=== PATIENT | female | born 1940 | race Caucasian/White ===

== ENCOUNTER 2017-11-12 09:50 | Inpatient (IN) ==
[2017-11-07 18:14] LABS: Blood Urea Nitrogen 12 mg/dl (8-23)
[2017-11-07 18:16] LABS: Basophils # (Auto) 0 K/mcL (0.0-0.3); Basophils % (Auto) 0.3 % (0.0-2.0); Eosinophils # (Auto) 0.1 K/mcL (0.0-0.7); Eosinophils % (Auto) 1.8 % (0.0-7.0); Granulocytes % (Auto) 43.2 % (38.0-78.0); Lymphocytes # (Auto) 3.6 K/mcL (1.5-4.8); Lymphocytes % (Auto) 49.6 % (15.5-49.0); Mean Cell Volume 121.9 fL (80.0-100.0); Mean Corpuscular HGB Conc 33.6 g/dL (31.0-36.0); Mean Corpuscular Hemoglobin 40.9 pg (26.0-34.0); Monocytes # (Auto) 0.4 K/mcL (0.1-0.9); Monocytes % (Auto) 5.1 % (1.0-12.0); Platelet Count 463 K/mcL (140-440); RBC 2.87 M/mcL (4.00-5.20); Red Cell Distribution Width 17.3 % (11.5-14.5)
[2017-11-11 12:06] LABS: Appearance,Urine CLOUDY; Bacteria,Urine 0 /hpf (0); Bilirubin,Urine NEG (NEG); Color,Urine YELLOW; Glucose,Urine (UA) NEGATIVE (NEG); Leukocyte Esterase,Urine 75 /uL (NEG); Mucus,Urine MOD /hpf (0); Protein,Urine NEG (NEG); Specific Gravity,Urine 1.011 (1.000-1.035); Urine Blood NEG mg/dL (<0.03); Urine RBC 1 /hpf (0-1); Urine Squamous Epithelial Cell 13 /hpf (0-4); Urine Transitional Epi Cells 1 /hpf (0-2); Urine WBC 5 /hpf (0-4); Urobilinogen,Urine NEG (NEG)
[~2017-11-12 09:50] MED LIST: CELECOXIB 200 MG CAPSULE PO SCH; PREGABALIN 75 MG CAPSULE PO SCH; ceFAZolin 1 GM VIAL IV SCH; oxyCODONE 10 MG TAB.ER.12H PO SCH
[2017-11-12] MEDS ORDERED: fentaNYL 250 MCG/5 ML VIAL IV ONE (13:05)
[2017-11-12] MEDS ORDERED: LIDOCAINE HCL/PF 100 MG/5 ML SYRINGE IV ONE (13:05)
[2017-11-12] MEDS ORDERED: ONDANSETRON 4 MG/2 ML VIAL IV ONE (13:05)
[2017-11-12] MEDS ORDERED: METOPROLOL TARTRATE 5 MG/5 ML VIAL IV ONE (13:05)
[2017-11-12] MEDS ORDERED: PROPOFOL 200 MG/20 ML VIAL IV ONE (13:05)
[2017-11-12] MEDS ORDERED: SUCCINYLCHOLINE 20 MG/ML ML IV ONE (13:05)
[2017-11-12] MEDS ORDERED: diphenhydrAMINE 50 MG/ML VIAL IV PRN (14:41)
[2017-11-12] MEDS ORDERED: HYDROmorphone 2 MG/ML VIAL IV PRN (14:41)
[2017-11-12] MEDS ORDERED: PROMETHAZINE 25 MG/ML VIAL IV PRN (14:41)
[2017-11-12] MEDS ORDERED: ePHEDrine 50 MG/ML AMPUL IV PRN (14:41)
[2017-11-12] MEDS ORDERED: ONDANSETRON 4 MG/2 ML VIAL IV PRN ×2 (14:41→14:43)
[2017-11-12] MEDS ORDERED: NALOXONE HCL 0.4 MG/ML VIAL IV PRN (14:41)
[2017-11-12] MEDS ORDERED: ATROPINE SULFATE 0.4 MG/ML VIAL IV PRN (14:41)
[2017-11-12] MEDS ORDERED: ACETAMINOPHEN 800 MG/80 ML BOTTLE IV ONE (14:41)
[2017-11-12] MEDS ORDERED: METOPROLOL TARTRATE 5 MG/5 ML VIAL IV PRN (14:41)
[2017-11-12] MEDS ORDERED: IPRATROPIUM/ALBUTEROL 3 ML AMPUL.NEB NEB PRN (14:41)
[2017-11-12] MEDS ORDERED: METHOCARBAMOL 1,000 MG/10 ML VIAL IV PRN (14:41)
[2017-11-12] MEDS ORDERED: MEPERIDINE 25 MG/ML SYRINGE IV PRN (14:41)
[2017-11-12] MEDS ORDERED: FLUMAZENIL 0.1 MG/ML ML IV PRN (14:41)
--- NOTE | 2017-11-12 14:42 | Brief Operative Note ---
Date of procedure: 11/12/17 Pre-op diagnosis: Chronic massive RTC tear Post-op diagnosis: same Procedure: Right reverse total shoulder arthroplasty Grafts/Implants: Yes (Biomet comp reverse 10 mini stem, std tray/poly, 36 glenosphere, mini base) Anesthesia: GETA Findings: absent rtc Complications: none Surgeon: Len Dugan Packing Machine Feeder: Arian Marie Estimated blood loss (cc): 100 Specimens Removed/Pathology: none sent Condition: stable Disposition: PACU
[2017-11-12] MEDS ORDERED: TRANEXAMIC ACID 1,000 MG/10 ML VIAL IV ONE (14:43)
[2017-11-12] MEDS ORDERED: MAGNESIUM HYDROXIDE 30 ML ORAL.SUSP PO PRN (14:43)
[2017-11-12] MEDS ORDERED: POLYETHYLENE GLYCOL 3350 17 GM PACKET PO PRN (14:43)
[2017-11-12] MEDS ORDERED: BISACODYL 10 MG SUPP.RECT PR PRN (14:43)
[2017-11-12] MEDS ORDERED: FLEETS ADULT ENEMA PR PRN (14:43)
[2017-11-12] MEDS ORDERED: KETOROLAC 15 MG/ML VIAL IV PRN (14:43)
[2017-11-12] MEDS ORDERED: BENZOCAINE/MENTHOL 1 LOZENGE PO PRN (14:43)
[2017-11-12] MEDS ORDERED: LACTATED RINGERS 1,000 ML IV SCH (14:45)
[2017-11-12] MEDS ORDERED: ACETAMINOPHEN/DIPHENHYDRAMINE 1 TABLET PO PRN (14:50)
[2017-11-12] MEDS ORDERED: METHOCARBAMOL 750 MG TABLET PO PRN (14:50)
[2017-11-12] MEDS ORDERED: fentaNYL 50 MCG PATCH TOPICAL SCH (15:00)
[2017-11-12] MEDS: fentaNYL 100 MCG/2 ML VIAL IV PRN ×5 (15:18→15:35)
--- NOTE | 2017-11-12 15:51 | XRay Report ---
CLINICAL INFORMATION: Reason for Exam:Post-OP Total Shoulder COMPARISON: None. FINDINGS: Total shoulder prostheses in anatomic alignment. No osseous abnormality. Soft tissue swelling seen as expected IMPRESSION: Negative Interpreted and Authenticated by: Guido De Los Santos 11/12/17
[2017-11-12] MEDS: 0.9 % SODIUM CHLORIDE 1,000 ML IV SCH (16:25)
[2017-11-12] MEDS ORDERED: HYDROXYUREA 500 MG CAPSULE PO ONE (18:00)
[2017-11-12] MEDS: ceFAZolin 1 GM VIAL IV SCH (19:52)
[2017-11-12] MEDS: oxyCODONE/APAP 5/325MG TABLET PO PRN (19:52)
[2017-11-12] MEDS ORDERED: DOXYLAMINE SUCCINATE 25 MG PO SCH (21:00)
[2017-11-12] MEDS ORDERED: SIMVASTATIN 20 MG TABLET PO SCH (21:00)
[2017-11-12] MEDS ORDERED: ASPIRIN 81 MG TAB.CHEW PO SCH (21:00)
[2017-11-12] MEDS ORDERED: SENNOSIDES 1 TABLET PO SCH (21:00)
[2017-11-12] MEDS: DOCUSATE SODIUM 100 MG CAPSULE PO SCH (21:11)
[2017-11-12] MEDS: MELOXICAM 7.5 MG TABLET PO SCH (21:11)
[2017-11-12] MEDS: 0.9 % SODIUM CHLORIDE 10 ML SYRINGE IV SCH (21:15)
[2017-11-13] MEDS: oxyCODONE/APAP 5/325MG TABLET PO PRN ×2 (02:12→10:06)
[2017-11-13] MEDS: ceFAZolin 1 GM VIAL IV SCH (04:20)
[2017-11-13] MEDS: 0.9 % SODIUM CHLORIDE 10 ML SYRINGE IV SCH (04:21)
[2017-11-13] MEDS: 0.9 % SODIUM CHLORIDE 1,000 ML IV SCH (04:21)
[2017-11-13] MEDS ORDERED: OMEPRAZOLE 20 MG CAPSULE PO SCH (07:30)
[2017-11-13] MEDS ORDERED: LEVOTHYROXINE 100 MCG TABLET PO SCH (07:30)
--- NOTE | 2017-11-13 08:00 | Discharge Summary ---
Providers - Providers Patient information: Note initiated : 11/13/17 at 7:57 am Service Date, if different from initiated Date: [] Patient: Colette Oscar 77 y/o F admitted on 11/12/17 for Right Reverse Total Shoulder Artrhroplasty. Chief Complaint: [] Discharge date: 11/13/17 Hospitalization Hospital course: Pt was admitted for a R reverse total shoulder arthroplasty. Pt was admitted on the day of the procedure and spent one night on the floor prior to discharge for IV abx, IV pain meds and PT. Pt will attend out-pt PT. Will f/u at [facility] in 2 weeks. Discharge diagnosis: R shoulder rotator cuff arthropathy Exam - Exam Clean and dry: Yes Weight bearing status: none Ortho Discharge - TSA - Patient Instructions Diet: Regular Diet Activity: non weight bearing Total Shoulder Protocol: Leave immobilizer in place except for bathing and ROM. Abduction pillow. Continue to wear sling until seen by physician. Codman Pendulum : These exercises use momentum produced by your body to move your shoulder joint. Bend your knees and shift your weight to your front leg, then back, allowing your arm to swing in the same directions. Using the same technique, alternately shift your weight between your right and left legs, allowing your arm to swing from side to side. These exercises are also performed in counterclockwise and clockwise circular motions. Typically these exercises are performed several times per day, for a set number repetitions or minutes, such as 20 times in a row or 5 minutes at a time. Dressing Care: May shower in 2 days - Follow Up Plan Follow Up Appointments: Len Dugan MD [Physician] - 11/27/17 10:40 am Disposition: Home, Self-Care Prognosis: Good Rehab Potential: Good Overall status at discharge: patient is progressing back to baseline - Orders For Discharge Prescriptions: oxyCODONE/APAP [Percocet 5-325 mg] 1 - 2 tab PO Q4HP PRN #60 tab PRN Reason: Pain Level 3-6 Pending Studies Resuscitation Status Full Code Diet Regular Diet Start FriNov 12 144 Aspirin (Aspirin) 81 mg PO HS JOAQUIN Last Admin: 11/12/17 21:11 Dose: 81 mg Docusate Sodium (Colace) 100 mg PO BID JOAQUIN Last Admin: 11/12/17 21:11 Dose: 100 mg Fentanyl (Duragesic) 50 mcg TOPICAL Q72H [facility] Last Admin: 11/12/17 16:24 Dose: 50 mcg Sodium Chloride (Sodium Chloride 0.9%) 1,000 mls @ 75 mls/hr IV .[id number] [facility] Last Admin: 11/13/17 04:21 Dose: Admin: 11/12/17 16:25 Dose: 75 mls/hr Meloxicam (Mobic) 7.5 mg PO BID [facility] Last Admin: 11/12/17 21:11 Dose: 7.5 mg Morphine Sulfate (Morphine) 0 mg IV Q1HP PRN PRN Reason: PAIN LEVEL > 6 Last Admin: 11/12/17 16:39 Dose: 2 mg Oxycodone/Acetaminophen (Percocet 5-325 Mg) 0 tab PO Q4HP PRN PRN Reason: PAIN LEVEL 3-6 Last Admin: 11/13/17 02:12 Dose: 2 tab Admin: 11/12/17 19:52 Dose: 2 tab Doxylamine Succinate (25 Mg Cap) 1 dose PO [facility] Last Admin: 11/12/17 21:14 Dose: 1 dose Senna (Senokot) 2 tab PO [facility] Last Admin: 11/12/17 21:11 Dose: 2 tab Simvastatin (Zocor) 20 mg PO [facility] Last Admin: 11/12/17 21:11 Dose: 20 mg Sodium Chloride (Saline Flush) 10 ml IV Q8 [facility] Last Admin: 11/13/17 04:21 Dose: 10 ml Admin: 11/12/17 21:15 Dose: Not Given Shift Summary 11/13/17 05:08 Shift Summary by Tiff Flaherty A&Ox4. Dressing to R shoulder CDI & immobilizer in place. Has 50mg fentanyl patch on. Gets up with SBA to BR. Voided 450ml at 0200 with PVR of 350ml. Will encourage her to void again before shift change. Pain controlled with 2 tab percocet x2 tonight. IV in LFA is SL. AV boots on while in bed. Calls appropriately. Initialized on 11/13/17 05:08 - END OF NOTE
[2017-11-13] MEDS: MELOXICAM 7.5 MG TABLET PO SCH (08:10)
[2017-11-13] MEDS: DOCUSATE SODIUM 100 MG CAPSULE PO SCH (08:10)
[2017-11-13] MEDS ORDERED: BIOTIN PO SCH (09:00)
[2017-11-13] MEDS ORDERED: HYDROXYUREA 500 MG CAPSULE PO SCH (09:00)
[2017-11-13] MEDS ORDERED: FOLIC ACID PO SCH (09:00)
[2017-11-13] MEDS ORDERED: FISH OIL 1,000 MG CAPSULE PO SCH (09:00)
[2017-11-13] MEDS ORDERED: ESTRADIOL 1 MG TABLET PO SCH (09:00)
[2017-11-13] MEDS ORDERED: MV IRON MIN PO SCH (09:00)
[2017-11-13] MEDS ORDERED: CALCIUM W/VIT D3 500 MG TABLET PO SCH (09:00)
[2017-11-13] MEDS ORDERED: GLUCOSAMINE/CHONDROITIN SULF A 1 CAP CAPSULE PO SCH (09:00)
[2017-11-13] MEDS ORDERED: VENLAFAXINE 75 MG TABLET PO SCH (09:00)
--- NOTE | 2017-11-13 10:54 | Operative Note ---
DATE OF OPERATION: 11/12/2017 PREOPERATIVE DIAGNOSIS: Right chronic irreparable rotator cuff tear. POSTOPERATIVE DIAGNOSIS: Right chronic irreparable rotator cuff tear. PROCEDURE PERFORMED: Right reverse total shoulder arthroplasty placing a Biomet Comprehensive reverse total shoulder using the mini humeral stem size 10 standard tray and polyethylene insert with a 36 glenosphere on a mini baseplate. SURGEON: Len Dugan MD. SERVICE CAPTAIN: Waqar Marie PA-C. ANESTHESIA: General. DRAINS: None. SPECIMENS: None. COMPLICATIONS: None. BLOOD LOSS: 150 mL. POSTOPERATIVE CONDITION: Stable. INDICATIONS FOR SURGERY: This is a 77-year-old female with longstanding shoulder pain and weakness. She had a massive rotator cuff tear that was chronic and irreparable. FINDINGS AT SURGERY: Completely absent rotator cuff. Post implantation showed stable position with acceptable range of motion. PROCEDURE IN DETAIL: The patient had been seen preoperatively and informed consent had been obtained after discussion of risks and benefits of surgery. Risks including, but not limited to, bleeding; infection, possibly requiring implant removal and prolonged IV antibiotics; injury to nerves, blood vessels, and other surrounding structures; anesthetic risks; incomplete or no resolution of symptoms; dislocation; possibility of needing further revision surgery. She understood these risks and wished to proceed. Correct operative site was marked, and then patient was taken to the operating room. General anesthesia was induced. She was carefully positioned in the beach chair position and pressure points carefully padded. The right shoulder and upper extremity were carefully prepped and draped in normal sterile fashion, and a time-out was performed verifying patient name, operative site, and plan. A standard deltopectoral incision was made with a scalpel through skin and subcutaneous tissue and then hemostasis obtained with Bovie cautery. Blunt dissection was taken down onto the cephalic vein. Irrisept was irrigated. We then bluntly dissected medial to the vein and dissected the vein and deltoid muscle laterally. Subdeltoid space was developed with blunt finger dissection, and there was clearly visible absent rotator cuff. We went ahead and dislocated the humeral head out anteriorly. A hole was made proximally. We then started reaming intramedullary up to a size 9 which had some rim ream. We trialed a 9; however, this was not particularly stable. We went up to 10 and had a difficult time even seating this fully, so we did have to ream with the merchandise presentation associate to a size 10 before we are able to seat the stem. We did make a humeral head cut with 30 degrees of external rotation using the guide. Once we had broached the 10 and placed a cut protector, we then exposed the glenoid. She had an extremely small glenoid, and I was concerned that reaming her anatomically would not leave me much bone to fixate into, so I chose to angle this with more anteversion to try and get our central peg and screws into the spine of the scapula, so we placed our guide pin slightly angled cranially. I then reamed until we had cancellous bone on the inferior half and just started reaming anteriorly. The posterior-superior quadrant did not contact bone, however. We then drilled the one-step reamer that reamed our central peg and then we opened our mini baseplate. We irrigated with Irrisept, after a minute pulse lavaged, and then we impacted the baseplate. We drilled the central hole and then placed a 30 mm central screw. We then drilled and placed our superior and inferior locking screws. These were short. The anterior variable angle screw, however, I was able to shoot right down the spinous scapula and got a good long nonlocking screw. The posterior screw was short, but we were able to get four good screws. We then trialed with the glenosphere with as minimal offset as possible and redislocated the humeral component. The standard tray insert trial was placed. I was unable to reduce the shoulder, so I ended up having to re-cut bone about 2 to 3 mm deeper on the humerus, then re-attempted to reduce and this time with significant difficulty. It was just starting to reduce, so I went ahead and removed the trial and re-exposed the glenosphere. We removed the trial glenosphere. We opened up a 36 placing this in as minimal offset as possible, size letter B. We then impacted this. We then re-exposed the humerus. The 10 stem was opened. We irrigated the humeral canal with Irrisept, after a minute pulse lavaged, and then impacted the stem. We then impacted the tray on the stem. The shoulder reduced with significant tension but was very stable once it popped into place, so we irrigated with Irrisept, after a minute pulse lavaged, and then used #1 Vicryl running stitch to close the deltopectoral interval, 2-0 Monocryl for subcutaneous and nano for skin. Xeroform and sterile dressing were applied. Arm was placed in an abductor immobilizer and patient was awakened, extubated, and transferred to recovery in stable condition. BJSami:hedy Job ID: [id number] Doc ID: [id number] Len Dugan MD
[2017-11-14] MEDS ORDERED: HYDROXYUREA 500 MG CAPSULE PO SCH (09:00)
== END 2017-11-13 10:25 | disposition home or self-care (01) | DRG 483 ==
LOC: MEDSUR 09:50
PROVIDERS: ADMIT Orthopaedic Surgery; ATTEND Orthopaedic Surgery

== ENCOUNTER 2019-12-17 15:12 | Inpatient (IN) ==
[2019-12-17] MEDS ORDERED: 0.9 % SODIUM CHLORIDE 1,000 ML IV ONE (16:21)
--- NOTE | 2019-12-17 16:23 | Emergency Department Note ---
General Adult HPI - General Chief complaint: Weakness Stated complaint: weakness Time Seen by Provider: 12/17/19 15:29 Source: EMS Mode of arrival: ambulatory Limitations: no limitations - History of Present Illness HPI Narrative: Patient has been weak. She has lost bowel and bladder control. Concern is that she needs to be admitted to a long care. She has necrotic foot ulcers and been under bariatric treatments with seeing wound care. She has been unable to stand. She has lost weight. She has not hardly drinking and has to be pushed hard. She is not taking her medications although sometimes it seems that she has difficulty swallowing. She describes pain in her lower extremities. She seems to be quite confused. There seems to be some degree of nausea. REVIEW OF SYSTEMS: Denies fevers chills sweats chest pain cough shortness of breath abdominal pain nausea or vomiting. No dysuria although had a recent UTI diagnosed on [facility] at [facility] but patient refused some of her ant ibiotics. No back pain. No headaches or lightheaded/dizziness but seems quite weak. Daughter reports that she is probably lost 14 pounds. She tried to take hydrocodone a couple of nights ago but spit it out and she eventually maybe had some of it dissolve. She has some chronic hydrocodone for her chronic pain issues but does not necessarily take it very much. - Related Data Home Medications Medication Instructions Recorded Confirmed Glucosamine/Chondroitin/C/Joe 1 cap PO DAILY 11/07/17 11/30/19 [Glucosamine Chondroitin Caplet] Meloxicam 7.5 mg PO BID 11/07/17 11/30/19 Mv,Iron,Mins/Folic Acid/Biotin 2 cap PO DAILY 11/07/17 11/30/19 [Hair, Skin and Nails Softgel] alendronate 70 mg tablet 70 mg PO QWEEK 06/23/19 11/30/19 hydroxyurea 500 mg capsule 1,000 mg PO BID cap 06/23/19 11/30/19 ketoconazole 2 % topical cream 1 applic TOPICAL BID 06/23/19 11/30/19 lidocaine 5 % topical patch 1 patch TOPICAL Q12H PRN each 06/23/19 11/30/19 omega 5-rbs-qyd-fish oil 300 1 cap PO TID cap 06/23/19 11/30/19 mg-1,000 mg capsule magnesium oxide 500 mg tablet 500 mg PO QDAY 08/12/19 11/30/19 Previous Rx's Medication Instructions Recorded methocarbamol 750 mg tablet See Rx Instructions .ROUTE 06/21/19 .COMPLEX #60 tablet omeprazole 40 mg capsule,delayed 40 mg PO QAM #90 cap 08/30/19 release venlafaxine 75 mg tablet 75 mg PO DAILY #30 tab 09/28/19 hydrocodone 10 mg-acetaminophen 1 tab PO Q6H PRN #120 tab 11/01/19 325 mg tablet mirtazapine 7.5 mg tablet 7.5 mg PO QHS #30 tab 11/16/19 levothyroxine 125 mcg tablet 125 mcg PO QDAY #30 tab 11/18/19 potassium chloride 10 mEq 10 meq PO QDAY #30 cap 11/18/19 capsule,extended release clopidogrel 75 mg tablet 75 mg PO QDAY #30 tab 11/26/19 simvastatin 20 mg tablet 20 mg PO HS #90 tab 11/26/19 fexofenadine-pseudoephedrine ER 1 tab PO QDAY #90 tab 11/29/19 180 mg-240 mg tablet,ext.release 24 hr diclofenac sodium 1 % topical gel See Rx Instructions .ROUTE 12/02/19 .COMPLEX #100 g Allergies Allergy/AdvReac Type Severity Reaction Status Date / Time meperidine [From Demerol] Allergy Severe Unknown Verified 11/30/19 10:55 codeine AdvReac Mild Gastrointestinal Verified 11/30/19 10:55 Upset Cyclobenzaprine AdvReac Mild Gastrointestinal Verified 11/30/19 10:55 [From Flexeril] Upset Estrogens AdvReac Mild Rash Verified 11/30/19 10:55 Sulindac [From Clinoril] AdvReac Mild Gastrointestinal Verified 11/30/19 10:55 Upset talacin Allergy Unknown Unknown Uncoded 11/30/19 10:55 Past Medical History - Past Medical History [facility] Narrative: Medical History (Last Updated 12/17/19 @ 20:56 by Mark Ford DO) CVA (cerebral vascular accident) (Chronic) Myelodysplastic disease (Chronic) Myelodysplastic syndrome (Chronic) Elevated platelet count (Chronic) Thrombocythemia (Chronic) Personal history of gastric ulcer (Chronic) Weight loss, unintentional (Chronic) Frequent falls (Chronic) Benign essential hypertension (Chronic) GERD with apnea (Chronic) Loss of appetite for more than 2 weeks (Chronic) Failure to thrive in adult (Chronic) Generalized weakness (Chronic) Discoloration of skin of foot (Chronic) Hyperlipemia (Chronic) DDD (degenerative disc disease), lumbar (Chronic) Family history of breast cancer (Chronic) Encounter for long-term (current) use of medications (Chronic) Cervical radiculopathy (Chronic) Lesion of skin of nose (Chronic) Gout (Chronic) Insomnia (Chronic) Shoulder pain, right (Chronic) Spinal stenosis, lumbar (Chronic) Lumbar back pain (Chronic) Rotator cuff tear, right (Chronic) Hip pain, left (Chronic) Fall in elderly patient (Chronic) Depression (Chronic) Hypothyroidism (Chronic) Low back pain syndrome (Chronic) Osteoporosis (Chronic) Nevus, non-neoplastic (Chronic) Hypertriglyceridemia (Chronic) Abnormal mammogram (Chronic) Bursitis (Chronic) Multiple lipomas (Chronic) Osteoarthritis (Chronic) Hot flashes (Chronic) Cervical spondylosis with radiculopathy (Chronic) Benign skin lesion of nose (Chronic) Epigastric pain (Resolved) Plantar fasciitis (Resolved) 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) Past Surgical History (Last Updated 12/17/19 @ 15:30 by Mark Ford DO) History of cholecystectomy (Chronic) History of hysterectomy (Chronic) History of nasal surgery (Chronic ~06/2002) History of pyloroplasty (Chronic) History of shoulder surgery (Chronic 11/12/17) Family History (Last Reviewed 11/30/19 @ 11:01 by Rhianna Cook LPN) Unknown Breast cancer Mother Breast cancer Sister Breast cancer - Social History smoking status: Never smoker Alcohol use: Reports: None Drug use: Reports: none Physical Exam Limitations: no limitations General appearance: cachectic, in no apparent distress, nontoxic, sleepy, other (Repeatedly saying help me and that her feet hurt.) Head: atraumatic, normocephalic Eye: Present: EOMI ENT: Present: mucous membranes dry Neck: Present: trachea midline. Absent: lymphadenopathy, thyromegaly Chest: Present: symmetric chest wall rise Respiratory: Present: normal lung sounds bilaterally. Absent: respiratory distress, wheezes, stridor, accessory muscle use, prolonged expiratory phase Cardiovascular: Present: regular rate, normal rhythm. Absent: systolic murmur, diastolic murmur Abdominal: Present: soft. Absent: distention, tenderness, guarding, rebound, rigidity, organomegaly, mass Extremities: Absent: pedal edema, pretibial edema, calf tenderness Neurological: Present: other (Difficult to assess due to paucity of conversation.) Psychiatric: Present: flat affect, serious, poor eye contact. Absent: agitated, anxious Skin: Present: cool, dry Course Vital Signs Temperature 98.1 F 12/17/19 15:13 Pulse Rate 105 H 12/17/19 15:13 Respiratory Rate 20 12/17/19 15:13 Blood Pressure 106/57 12/17/19 15:13 Pulse Oximetry (%) 100 12/17/19 15:13 Temperature 98.1 F 12/17/19 15:13 Pulse Rate 94 H 12/17/19 21:32 Respiratory Rate 18 12/17/19 19:31 Blood Pressure 113/60 12/17/19 21:32 Pulse Oximetry (%) 100 12/17/19 21:32 Medical Decision Making - MDM Narrative Medical decision making narrative: 3:37 PM - interviewed and examined and discussed with daughter, Amy. Amy is present. We will do multiple labs and work-up. 5:08 PM - labs reviewed as follows: White count normal at 5.5 Hemoglobin 9.6 with a hematocrit of 29.7 is worse than previous. Platelet count is low at 83. This is new where previous just 1 month ago was 421 and a week before that for 63. Lactic acid is normal at 1.3. Chemistry includes BUN 24, creatinine 0.9. This is a similar creatinine to the past. Liver function tests are similar to past. Lipase is normal. Troponin is elevated at 0.07 which is new. 5:12 PM - chest x-ray is negative. Previous plain films of the left foot was negative for osteomyelitis, approximately 2 weeks ago. UA unremarkable for nitrates, leukocyte Estrace or significant WBCs. 8:59 PM - I spoke with patient's daughter, Deborah, who indicates that she is the primary decision maker. They have been visiting patient and her home where she lives with Alfa, a significant other who is older and cannot take care of her either. She has been on the floor multiple times either due to imbalance and falls or due to her feet being so bad. She has difficulty swallowing but does not seem to choke when taking soup but will not seem to drink. . he reports t hat she does not want to keep going, patient resists interventions and treatments, etc. MrDee reports that she is a realistic does not want harm or aggressive interventions. Previously patient was a full code but she at this point is indicating that her wishes would be a DNR and the family is in agr eement with this. They are ready to consider hospice care and would like this to happen. They are not able to provide care in the patient's home 10/02 and so need additional help. Patient is to be admitted for comfort care until further arrangements are made for longer term hospice. 9:40 PM - I spoke with Dr. Trinh, hospitalist, who is in agreement to accept patient for comfort care until above is arranged. - Lab Data Result diagrams: 12/17/19 15:42 12/17/19 15:41 Lab Results 12/17/19 12/17/19 12/17/19 Range/Units 15:41 15:41 15:41 WBC (4.50-11.00) K/mcL RBC (3.59-5.38) M/mcL Hgb (11.2-15.7) g/dL Hct (34.1-44.9) % MCV (80.0-100.0) fL MCH (26.0-34.0) pg MCHC (31.0-36.0) g/dL RDW (11.5-14.5) % Plt Count (140-440) K/mcL MPV (7.4-10.4) fL Gran % (38.0-78.0) % Lymph % (Auto) (15.5-49.0) % Berrien % (Auto) (1.0-12.0) % Eos % (Auto) (0.0-7.0) % Baso % (Auto) (0.0-2.0) % Gran # (1.80-8.00) K/mcL Lymph # (Auto) (1.50-4.80) K/mcL Berrien # (Auto) (0.10-0.90) K/mcL Eos # (Auto) (0.00-0.70) K/mcL Baso # (Auto) (0.00-0.30) K/mcL Differential Comment VBG Lactic Acid 1.3 (0.5-2.0) mmol/L Sodium 136 (133-145) mmol/L Potassium 3.8 (3.3-5.1) mmol/L Chloride 100 (96-108) mmol/L Carbon Dioxide 20 L (22-30) mmol/L Anion Gap 16.0 (8-16) BUN 24 H (8-23) mg/dl Creatinine 0.9 (0.6-1.1) mg/dl GFR Calculation 61 Glucose 71 (70-105) mg/dL Calcium 8.3 L (8.6-10.4) mg/dl Total Bilirubin 0.5 (0.0-1.0) mg/dL AST 39 H (0-37) U/l ALT 17 (0-40) U/l Alkaline Phosphatase 149 H (39-117) U/L Troponin T 0.07 H* (0-0.03) ng/ml Total Protein 6.2 (5.9-8.4) gm/dL Albumin 2.9 L (3.2-5.2) gm/dL Globulin 3.3 (2.2-3.7) gm/dL Albumin/Globulin Ratio 0.9 L (1.0-2.3) Lipase 53 (7-60) U/L Urine Color Urine Appearance Urine pH (5.0-9.0) Ur Specific Etoile (1.000-1.035) Urine Protein (NEG) mg/dL Urine Glucose (UA) (NEG) mg/dL Urine Ketones (NEG) mg/dL Urine Occult Blood (<0.03) mg/dL Urine Nitrate (NEG) Urine Bilirubin (NEG) mg/dL Urine Urobilinogen (NEG) mg/dL Ur Leukocyte Esterase (NEG) /uL Urine RBC (0-1) /hpf Urine WBC (0-4) /hpf Ur Squamous Epith Cells (0-4) /hpf Ur Transition Epith Cell (0-2) /hpf Urine Bacteria (0) /hpf Hyaline Casts (0-2) /lpf Urine Mucus (0) /hpf Ur Culture Indicated? 12/17/19 12/17/19 12/17/19 Range/Units 15:42 18:03 19:14 WBC 5.5 (4.50-11.00) K/mcL RBC 2.74 L (3.59-5.38) M/mcL Hgb 9.6 L (11.2-15.7) g/dL Hct 29.7 L (34.1-44.9) % MCV 108.4 H (80.0-100.0) fL MCH 35.0 H (26.0-34.0) pg MCHC 32.3 (31.0-36.0) g/dL RDW 16.5 H (11.5-14.5) % Plt Count 83 L (140-440) K/mcL MPV 11.9 H (7.4-10.4) fL Gran % 60.3 (38.0-78.0) % Lymph % (Auto) 29.2 (15.5-49.0) % Berrien % (Auto) 9.9 (1.0-12.0) % Eos % (Auto) 0.4 (0.0-7.0) % Baso % (Auto) 0.2 (0.0-2.0) % Gran # 3.34 (1.80-8.00) K/mcL Lymph # (Auto) 1.62 (1.50-4.80) K/mcL Berrien # (Auto) 0.55 (0.10-0.90) K/mcL Eos # (Auto) 0.02 (0.00-0.70) K/mcL Baso # (Auto) 0.01 (0.00-0.30) K/mcL Differential Comment Few nrbcs on scans VBG Lactic Acid (0.5-2.0) mmol/L Sodium (133-145) mmol/L Potassium (3.3-5.1) mmol/L Chloride (96-108) mmol/L Carbon Dioxide (22-30) mmol/L Anion Gap (8-16) BUN (8-23) mg/dl Creatinine (0.6-1.1) mg/dl GFR Calculation Glucose (70-105) mg/dL Calcium (8.6-10.4) mg/dl Total Bilirubin (0.0-1.0) mg/dL AST (0-37) U/l ALT (0-40) U/l Alkaline Phosphatase (39-117) U/L Troponin T 0.06 H* (0-0.03) ng/ml Total Protein (5.9-8.4) gm/dL Albumin (3.2-5.2) gm/dL Globulin (2.2-3.7) gm/dL Albumin/Globulin Ratio (1.0-2.3) Lipase (7-60) U/L Urine Color Yellow Urine Appearance Clear Urine pH 5.0 (5.0-9.0) Ur Specific E[place] 1.020 (1.000-1.035) Urine Protein Neg (NEG) mg/dL Urine Glucose (UA) Negative (NEG) mg/dL Urine Ketones 5/tr A (NEG) mg/dL Urine Occult Blood 0.03 A (<0.03) mg/dL Urine Nitrate Neg (NEG) Urine Bilirubin Neg (NEG) mg/dL Urine Urobilinogen Neg (NEG) mg/dL Ur Leukocyte Esterase Neg (NEG) /uL Urine RBC 2 H (0-1) /hpf Urine WBC 2 (0-4) /hpf Ur Squamous Epith Cells 1 (0-4) /hpf Ur Transition Epith Cell < 1 (0-2) /hpf Urine Bacteria 0 (0) /hpf Hyaline Casts 2 (0-2) /lpf Urine Mucus Few (0) /hpf Ur Culture Indicated? No Disposition Pt seen by FOOD MANAGER/PA only: No Clinical Impression: Weight loss, Peripheral arterial disease, Atrial fibrillation with RVR, Abnormal electrocardiogram [ECG] [EKG] Failure to thrive Qualifiers: Failure to thrive age range: in adult Qualified Code(s): R62.7 - Adult failure to thrive Dysphagia Qualifiers: Dysphagia type: unspecified Qualified Code(s): R13.10 - Dysphagia, unspecified Chronic foot ulcer Qualifiers: Laterality: unspecified laterality Non-pressure ulcer stage: unspecified non- pressure ulcer stage Qualified Code(s): L97.509 - Non-pressure chronic ulcer of other part of unspecified foot with unspecified severity Summary: With a multitude of problems, symptoms, findings, changes, steady decline and patient's resistance, family is concluding to do comfort care. See above. Disposition: Xfer As Inpt ([facility]) Condition: Serious Referrals: Farshad Hussein ARNP [Primary Care Provider] -
--- NOTE | 2019-12-17 16:36 | XRay Report ---
HISTORY: Fell, weakness, confusion FINDINGS: The lungs are clear and well expanded. The heart size and pulmonary vasculature are normal. The patient is rotated to the left. There is chronic grade 4 separation of the right acromioclavicular joint. There is a reverse right shoulder prosthesis. These findings are unchanged from 12/06/19. IMPRESSION: No acute abnormality Interpreted and Authenticated by: Hardik Ruffin 12/17/19
[2019-12-17] MEDS: HYDROmorphone 0.5 MG/0.5 ML SYRINGE IV PRN ×2 (16:37→16:52)
[2019-12-17 16:48] LABS: ALT/SGPT 17 U/l (0-40); AST/SGOT 39 U/l (0-37); Albumin 2.9 gm/dL (3.2-5.2); Albumin/Globulin Ratio 0.9 (1.0-2.3); Alkaline Phosphatase 149 U/L (39-117); Bilirubin,Total 0.5 mg/dL (0.0-1.0); Calcium 8.3 mg/dl (8.6-10.4); Carbon Dioxide 20 mmol/L (22-30); Chloride 100 mmol/L (96-108); Globulin 3.3 gm/dL (2.2-3.7); Glucose 71 mg/dL (70-105)
[2019-12-17 16:50] LABS: Blood Urea Nitrogen 24 mg/dl (8-23); Glomerular Filtration Rate 61
[2019-12-17 17:03] LABS: Basophils # (Auto) 0.01 K/mcL (0.00-0.30); Basophils % (Auto) 0.2 % (0.0-2.0); Eosinophils # (Auto) 0.02 K/mcL (0.00-0.70); Eosinophils % (Auto) 0.4 % (0.0-7.0); Granulocytes % (Auto) 60.3 % (38.0-78.0); Hematocrit 29.7 % (34.1-44.9); Hemoglobin 9.6 g/dL (11.2-15.7); Lymphocytes # (Auto) 1.62 K/mcL (1.50-4.80); Lymphocytes % (Auto) 29.2 % (15.5-49.0); Mean Cell Volume 108.4 fL (80.0-100.0); Mean Corpuscular HGB Conc 32.3 g/dL (31.0-36.0); Mean Platelet Volume 11.9 fL (7.4-10.4); Monocytes # (Auto) 0.55 K/mcL (0.10-0.90); Monocytes % (Auto) 9.9 % (1.0-12.0); Platelet Count 83 K/mcL (140-440); RBC 2.74 M/mcL (3.59-5.38); Red Cell Distribution Width 16.5 % (11.5-14.5); WBC 5.5 K/mcL (4.50-11.00)
[2019-12-17] MEDS ORDERED: ONDANSETRON 4 MG/2 ML VIAL IV ONE (17:27)
[2019-12-17] MEDS ORDERED: PROMETHAZINE 25 MG/ML VIAL IV ONE (17:33)
--- NOTE | 2019-12-17 18:25 | Cat Scan Report ---
History: Increased weakness and confusion, prior stroke TECHNIQUE: The brain was imaged without contrast at 2.5 mm intervals. The radiation exposure was limited using dose reduction technology. FINDINGS: There is a moderate-sized old infarct with encephalomalacia in the upper aspect of the right frontal lobe. It measures approximately 3 cm in size involves both cortex and subcortical white matter. There is another old cortical infarct posteriorly medially in the right parietal lobe which is approximately 1 cm in size. A 4 mm lacunar infarct is present along the anterior border of the left putamen and there is another 3 x 5 mm lacunar infarct along the inferior lateral aspect of the right putamen. The boundary of the anterior limb of the right internal capsule and the right putamen there is no other small lacunar infarct measuring approximately 2 x 3 mm in size. There is no hemorrhage or mass effect. Patient has moderate generalized cerebral atrophy. The ventricles are prominent. Large confluent areas of abnormal decreased attenuation are present in the white matter throughout the frontal and parietal lobes. There is no abnormal extra-axial fluid collection. No prior study is available for comparison. IMPRESSION: Multiple old infarcts. The largest is in the right frontal lobe Dr. Ford was called with the results Dr. Ford was called with the results Interpreted and Authenticated by: Hardik Ruffin 12/17/19
[2019-12-17 19:18] LABS: Appearance,Urine CLEAR; Bacteria,Urine 0 /hpf (0); Bilirubin,Urine NEG (NEG); Color,Urine YELLOW; Culture Indicated,Urine NO; Glucose,Urine (UA) NEGATIVE (NEG); Ketones,Urine 5/TR mg/dL (NEG); Leukocyte Esterase,Urine NEG /uL (NEG); Mucus,Urine FEW /hpf (0); Nitrate,Urine NEG (NEG); Protein,Urine NEG (NEG); Urine Blood 0.03 mg/dL (<0.03); Urine Hyaline Cast 2 /lpf (0-2); Urine RBC 2 /hpf (0-1); Urine Squamous Epithelial Cell 1 /hpf (0-4); Urine Transitional Epi Cells < 1 /hpf (0-2); Urine WBC 2 /hpf (0-4); Urobilinogen,Urine NEG (NEG)
[2019-12-17] MEDS ORDERED: METOPROLOL TARTRATE 5 MG/5 ML VIAL IV ONE (19:22)
[2019-12-17] MEDS ORDERED: 0.9 % SODIUM CHLORIDE 500 ML IV ONE (19:30)
[2019-12-17] MEDS ORDERED: morphine 4 MG/ML VIAL IV PRN (22:22)
[2019-12-17] MEDS ORDERED: LORazepam 2 MG/ML VIAL IV PRN (22:29)
[2019-12-17] MEDS ORDERED: SCOPOLAMINE 1 PATCH PATCH TOPICAL SCH (22:30)
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
--- NOTE | 2019-12-17 23:35 | Event Note ---
Advanced Care Planning Documents: Parties in Attendance: Daughter Deborah Ernst in pt's room. Decisional Capacity: No POLST form completed: No. I explained the CPR and intubation in detail to Ms Deborah Ernst and treatment options for pt's condition. Ms Deborah Ernst declined CPR and intubation and only wants to pursue comfort care only. Ms Deborah Ernst told me that they all (4 daugh ters) agreed with comfort care only.
[2019-12-18] MEDS ORDERED: morphine 2 MG/ML VIAL ONE (00:17)
[2019-12-18] MEDS: LORazepam 2 MG/ML VIAL IV PRN (00:33)
[2019-12-18] MEDS ORDERED: LORazepam 2 MG/ML VIAL ONE (00:34)
[2019-12-18] MEDS ORDERED: 0.9 % SODIUM CHLORIDE 10 ML SYRINGE IV SCH (06:00)
[2019-12-18] MEDS: 0.9 % SODIUM CHLORIDE 10 ML SYRINGE IV SCH ×3 (06:06→22:00)
[2019-12-18] MEDS ORDERED: ACETAMINOPHEN 650 MG SUPP.RECT PR PRN (08:44)
--- NOTE | 2019-12-18 11:22 | Internal Med Progress Note ---
Medical - PN: Subj Patient information: Note initiated : 12/18/19 at 11:20 am Service Date, if different from initiated Date: [] Patient: Colette Oscar a 79 y/o F admitted on 12/17/19 for weakness. Chief Complaint: [] Interval history: Ms. Oscar is a 79 year old F with a hx of MDS, atrial fibrillation, history of CVA, anemia, high blood pressure, dysphagia, and gangrene feet and toes who was brought to the ER due to 1 episode of unresponsiveness. Patient is a poor historian. Almost all history is obtained from daughter Deborah Ernst and ER physician Dr. Ford. Patient lives in single-family home and recently she started to have bariatric treatment for her gangrene feet and toes. But 1 PM today she was found to have unresponsiveness for the treatment. EMS was called and the patient brought up to the ER. In the ER, CT of head negative for acute changes. Troponin was elevated and EKG was not normal. booking supervisor Lnik was called by Dr. Ford to admit the pt for hospice/comfort care. 12/17 Pt is sleeping. She seems to be comfortable. As per request from daughter, started oxygen, suction as needed for comfort, and IVF. Review of systems: Unable to obtain due to mental status - Constitutional Vitals: Vital Signs Temp Pulse Resp BP Pulse Ox 100.3 F H 115 H 24 H 96/53 96 12/18/19 07:58 12/18/19 07:58 12/18/19 07:58 12/18/19 07:58 12/18/19 07:58 Period Temp Pulse Resp BP Sys/[place] Pulse Ox Last 24 Hr 98.1 F-100.3 F 91-131 10-24 92-136/49-110 93-100 Intake and Output 12/17/19 12/18/19 12/18/19 21:59 05:59 13:59 Intake Total 1500 Output Total 1 Balance 1500 -1 Weight 47.174 kg 44.679 kg Intake & Output: Intake & Output 12/17/19 12/18/19 12/18/19 21:59 05:59 13:59 Intake Total 1500 Output Total 1 Balance 1500 -1 Weight 47.174 kg 44.679 kg Intake: IV 1500 Sodium Chloride 0.9% 1,000 ml @ 1000 Wide Open IV [facility] Rx#: [id number] Sodium Chloride 0.9% 500 ml @ 500 Wide Open IV [facility] Rx#: [id number] Output: # of times incontinent of urine 1 Other: Urine Odor Strong - Additional findings Additional findings: General -thin, sleeping, no acute distress Eyes - PERRLA, EOM intact ENT no rhinorrhea, no noticeable or palpable swelling, no redness or rash around throat or on face Neck supple, no JVD, no thyromegaly Respiratory: Lungs -clear, no wheezing or crackles. Cardiovascular - no m/r/g, GI - Normal bowel sounds, no distended, soft. Extremeties - No edema, cyanosis or clubbing, multiple gangrene areas and toes of both feet. Hemo/lymphatic/immune no lymphadenopathy Neurological no focal neurological deficits. Psychiatry sleeping Medical - PN: Obj Da - Labs CBC & Chem 7: 12/17/19 15:42 12/17/19 15:41 Labs: Abnormal Lab Results 12/17/19 12/17/19 12/17/19 19:14 18:03 15:42 RBC 2.74 L Hgb 9.6 L Hct 29.7 L MCV 108.4 H MCH 35.0 H RDW 16.5 H Plt Count 83 L MPV 11.9 H Carbon Dioxide BUN Calcium AST Alkaline Phosphatase Troponin T 0.06 H* Albumin Albumin/Globulin Ratio Urine Ketones 5/tr A Urine Occult Blood 0.03 A Urine RBC 2 H 12/17/19 12/17/19 15:41 15:41 RBC Hgb Hct MCV MCH RDW Plt Count MPV Carbon Dioxide 20 L BUN 24 H Calcium 8.3 L AST 39 H Alkaline Phosphatase 149 H Troponin T 0.07 H* Albumin 2.9 L Albumin/Globulin Ratio 0.9 L Urine Ketones Urine Occult Blood Urine RBC Meds: Medications Sodium Chloride (Sodium Chloride 0.9%) 1,000 mls @ 50 mls/hr IV .Q20H [facility] Lorazepam (Ativan) 0.5 mg IV Q4-6HP PRN PRN Reason: ANXIETY/SEDATION Last Admin: 12/18/19 00:33 Dose: 0.5 mg Documented by: Morphine Sulfate (Morphine) 2 mg IV Q2HP PRN; Protocol PRN Reason: Per Pain Protocol Scopolamine (Transderm-Scop) 1 patch TOPICAL Q72H [facility] Sodium Chloride (Saline Flush) 10 ml IV Q8 [facility] Last Admin: 12/18/19 06:06 Dose: Not Given Documented by: Medical - PN: A/P - Time Spent With Patient Total time spent is greater than 50% in coordination of care (as documented) at patient's floor/unit and/or counseling patient: - Narrative A/P Narrative: Assessment: 1. One episode of unresponsiveness 2. MDS D46.9 3. Elevation of troponin R79.89 4. Abnormal EKG R97.31 5. Atrial fibrillation I48.91 6. Hx of CVA Z86.73 7. Anemia D64.9 8. Thrombocytopenia D47.3 9. Abnormal liver enzymes R74.8 10. HTN 11. Failure to thrive in adult R62.7 12. Generalized weakness R53.1 13. Dysphagia R13.10 14. PAD I73.9 15. Gangrene feet and toes I96 Plan: Continue comfort care only. Morphine 2mg iv Q2HP Ativan 0.5mg IV Q4-6HP Scopolamine Will cath CM consult As per request from daughter, started oxygen, suction as needed for comfort, and IVF. Medical - PN: Qual - Stroke Symptom Onset Unknown: No - VTE Deep Vein Thrombosis/Pulmonary Embolism Present on Admission: No
[2019-12-18] MEDS: 0.9 % SODIUM CHLORIDE 1,000 ML IV SCH (11:32)
[2019-12-19] MEDS: 0.9 % SODIUM CHLORIDE 10 ML SYRINGE IV SCH ×3 (06:17→20:07)
[2019-12-19] MEDS: 0.9 % SODIUM CHLORIDE 1,000 ML IV SCH (07:59)
--- NOTE | 2019-12-19 09:22 | Internal Med Progress Note ---
Medical - PN: Subj Patient information: Note initiated : 12/19/19 at 9:16 am Service Date, if different from initiated Date: [] Patient: Colette Oscar a 79 y/o F admitted on 12/17/19 for weakness. Chief Complaint: [] Interval history: Ms. Oscar is a 79 year old F with a hx of MDS, atrial fibrillation, history of CVA, anemia, high blood pressure, dysphagia, and gangrene feet and toes who was brought to the ER due to 1 episode of unresponsiveness. Patient is a poor historian. Almost all history is obtained from daughter Deborah Ernst and ER physician Dr. Ford. Patient lives in single-family home and recently she started to have bariatric treatment for her gangrene feet and toes. But 1 PM today she was found to have unresponsiveness for the treatment. EMS was called and the patient brought up to the ER. In the ER, CT of head negative for acute changes. Troponin was elevated and EKG was not normal. animal humane agent supervisor Link was called by Dr. Ford to admit the pt for hospice/comfort care. 12/17 Pt is sleeping. She seems to be comfortable. As per request from daughter, started oxygen, suction as needed for comfort, and IVF. 12/18 today pt woke up and asked something to eat. Discussed with daughter Deborah who would like to let her to eat since she wants. Deborah fully understands it could put her on risk for aspiration pneumonia. Deborah agreed to let her eat and will take all responsibilities if adverse aspiration events occur. dysphagia diet ordered. Review of systems: All systems were reviewed and are negative - Constitutional Vitals: Vital Signs Temp Pulse Resp BP Pulse Ox 99.8 F H 106 H 20 114/55 98 12/18/19 18:48 12/18/19 18:48 12/19/19 07:33 12/18/19 18:48 12/19/19 07:33 Period Temp Pulse Resp BP Sys/[place] Pulse Ox Last 24 Hr 99.8 F 106 20-24 114/55 96-98 Intake and Output 12/18/19 12/19/19 12/19/19 21:59 05:59 13:59 Intake Total 1000 Output Total 1 1 Balance -1 -1 1000 Weight 43.998 kg Intake & Output: Intake & Output 12/18/19 12/19/19 12/19/19 21:59 05:59 13:59 Intake Total 1000 Output Total 1 1 Balance -1 -1 1000 Weight 43.998 kg Intake: IV 1000 Sodium Chloride 0.9% 1,000 ml @ 1000 50 mls/hr IV .Q20H [facility] Rx#: [id number] Output: # of times incontinent of urine 1 1 Other: Percent of Meal Consumed 0% # of times incontinent of 0 Bowels - Additional findings Additional findings: General -thin, no acute distress Eyes - PERRLA, EOM intact ENT no rhinorrhea, no noticeable or palpable swelling, no redness or rash around throat or on face Neck supple, no JVD, no thyromegaly Respiratory: Lungs -clear, no wheezing or crackles. Cardiovascular - no m/r/g, GI - Normal bowel sounds, no distended, soft. Extremeties - No edema, cyanosis or clubbing, multiple gangrene areas and toes of both feet. Hemo/lymphatic/immune no lymphadenopathy Neurological alert, no focal neurological deficits. Psychiatry normal Medical - PN: Obj Da - Labs CBC & Chem 7: 12/17/19 15:42 12/17/19 15:41 Labs: Abnormal Lab Results 12/17/19 12/17/19 12/17/19 19:14 18:03 15:42 RBC 2.74 L Hgb 9.6 L Hct 29.7 L MCV 108.4 H MCH 35.0 H RDW 16.5 H Plt Count 83 L MPV 11.9 H Carbon Dioxide BUN Calcium AST Alkaline Phosphatase Troponin T 0.06 H* Albumin Albumin/Globulin Ratio Urine Ketones 5/tr A Urine Occult Blood 0.03 A Urine RBC 2 H 12/17/19 12/17/19 15:41 15:41 RBC Hgb Hct MCV MCH RDW Plt Count MPV Carbon Dioxide 20 L BUN 24 H Calcium 8.3 L AST 39 H Alkaline Phosphatase 149 H Troponin T 0.07 H* Albumin 2.9 L Albumin/Globulin Ratio 0.9 L Urine Ketones Urine Occult Blood Urine RBC Meds: Medications Sodium Chloride (Sodium Chloride 0.9%) 1,000 mls @ 50 mls/hr IV .Q20H [facility] Last Admin: 12/19/19 07:59 Dose: 50 mls/hr Documented by: Lorazepam (Ativan) 0.5 mg IV Q4-6HP PRN PRN Reason: ANXIETY/SEDATION Last Admin: 12/18/19 00:33 Dose: 0.5 mg Documented by: Morphine Sulfate (Morphine) 2 mg IV Q2HP PRN; Protocol PRN Reason: Per Pain Protocol Scopolamine (Transderm-Scop) 1 patch TOPICAL Q72H [facility] Sodium Chloride (Saline Flush) 10 ml IV Q8 [facility] Last Admin: 12/19/19 06:17 Dose: Not Given Documented by: Medical - PN: A/P - Time Spent With Patient Total time spent is greater than 50% in coordination of care (as documented) at patient's floor/unit and/or counseling patient: - Narrative A/P Narrative: Assessment: 1. One episode of unresponsiveness 2. MDS D46.9 3. Elevation of troponin R79.89 4. Abnormal EKG R97.31 5. Atrial fibrillation I48.91 6. Hx of CVA Z86.73 7. Anemia D64.9 8. Thrombocytopenia D47.3 9. Abnormal liver enzymes R74.8 10. HTN 11. Failure to thrive in adult R62.7 12. Generalized weakness R53.1 13. Dysphagia R13.10 14. PAD I73.9 15. Gangrene feet and toes I96 Plan: Continue comfort care only. Morphine 2mg iv Q2HP Ativan 0.5mg IV Q4-6HP Scopolamine Will cath CM consult As per request from daughter, started oxygen, suction as needed for comfort, and IVF. Dysphagia diet (Daughter agreed) Medical - PN: Qual - Stroke Symptom Onset Unknown: No - VTE Deep Vein Thrombosis/Pulmonary Embolism Present on Admission: No
[2019-12-19] MEDS: morphine 4 MG/ML VIAL IV PRN ×2 (12:12→14:25)
[2019-12-20] MEDS: 0.9 % SODIUM CHLORIDE 10 ML SYRINGE IV SCH ×2 (04:56→13:31)
[2019-12-20] MEDS: 0.9 % SODIUM CHLORIDE 1,000 ML IV SCH (04:56)
[2019-12-20] MEDS: morphine 4 MG/ML VIAL IV PRN ×4 (06:13→16:01)
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
--- NOTE | 2019-12-20 13:40 | General Surgery Consult Note ---
History of Present Illness Patient information: Note initiated : 12/20/19 at 1:37 pm Service Date, if different from initiated Date: [] Patient: Colette Oscar 79 y/o F admitted on 12/17/19 for weakness. Chief Complaint: [] Consult date: 12/20/19 Requesting physician: Tai Valencia (Gangrene feet) History of present illness: I know this patient from her prior encounter at [facility] in November 2019 79/F Multiple comorbid problems CVA, A Fib, CAD, Anemia and fall with unresponsiveness resulting in cold feet ( low flow state ) and patchy gangrene of toes of both feet. This was responding to conservative management and after initiation of HBOT for acute arterial occlusion. There was another episode of weakness / unresponsiveness over the weekend, resulting in her current hospitalization. Reviewed her ER and Hospitalist notes. She has worsening of gangrene of feet with foul odor. Lab results reveal elevated troponin. CT head is negative for any acute finding. This time around she is made DNR and comfort measure only and is now being transferred to hospice care. Medications and Allergies Home Medications Medication Instructions Recorded Confirmed Type LORazepam [Ativan] 0.5 mg SL Q6H PRN #12 tab 12/20/19 Rx Scopolamine 1 each TD Q72H PRN #1 patch.td.3 12/20/19 Rx morphine SULFATE/PF [Morphine 1 2 mg SL Q4H PRN 3 Days #40 mg 12/20/19 Rx mg/ml Vial P-F] Allergies Allergy/AdvReac Type Severity Reaction Status Date / Time meperidine [From Demerol] Allergy Unknown Unknown Verified 12/18/19 08:05 codeine AdvReac Mild Gastrointestinal Verified 11/30/19 10:55 Upset Cyclobenzaprine AdvReac Mild Gastrointestinal Verified 11/30/19 10:55 [From Flexeril] Upset Estrogens AdvReac Mild Rash Verified 11/30/19 10:55 Sulindac [From Clinoril] AdvReac Mild Gastrointestinal Verified 11/30/19 10:55 Upset talacin Allergy Unknown Unknown Uncoded 11/30/19 10:55 Exam Temp Pulse Resp BP Pulse Ox 98.4 F 100 H 16 111/47 97 12/20/19 06:23 12/20/19 06:23 12/20/19 07:40 12/20/19 06:23 12/20/19 07:40 - General physical appearance no distress, chronically ill - Eyes PERRL, normal ocular movement - ENT normal nares, normal mucosa, no congestion - Head Head exam IM: Present: atraumatic, normocephalic - Neck trachea midline, no venous distension - Cardiovascular Cardiovascular exam IM: Present: irregular rhythm - Respiratory normal respiratory effort - Integumentary Present: other (Gangrene of both feet and lower legs/ Putrfaction. Foul odor. ) - Neurologic Present: other (No focal neurological examiantion.) - Musculoskeletal Present: other (Bed confined. Gangrene of both feet and lower legs. ) - Psychiatric Present: oriented to time (Lucid and cooperative. Does NOT want any active or aggressive treatment. Requests comfortcare and DNR status.), oriented to person, oriented to place, speech is normal Results - Labs 12/17/19 15:42 12/17/19 15:41 All other labs normal. Assessment and Plan (1) Gangrene of both feet Status: Chronic Priority: High Comment: PER patient request and directives, she is now made DNR and for comfort care. Referred to Hospice services. Changes noted and reviewed with Zahida Hua Inpatient wound care nurse and [facility] nursing staff. (2) Failure to thrive Status: Chronic Priority: Low Qualifiers: Failure to thrive age range: in adult Qualified Code(s): R62.7 - Adult failure to thrive (3) Weight loss Status: Chronic Priority: Low (4) Peripheral arterial disease Status: Chronic Priority: Medium (5) Chronic foot ulcer Status: Chronic Priority: Medium Qualifiers: Laterality: unspecified laterality Non-pressure ulcer stage: unspecified non-pressure ulcer stage Qualified Code(s): L97.509 - Non-pressure chronic ulcer of other part of unspecified foot with unspecified severity (6) Atrial fibrillation with RVR Status: Acute Priority: Medium (7) Abnormal electrocardiogram [ECG] [EKG] Status: Acute Priority: Medium
[2019-12-20] MEDS: LORazepam 2 MG/ML VIAL IV PRN (16:01)
[2019-12-20] MEDS ORDERED: SCOPOLAMINE 1 PATCH PATCH TOPICAL SCH (22:30)
== END 2019-12-20 16:50 | disposition hospice, home (50) | DRG 812 ==
LOC: ED 15:12 → MEDSUR 23:30
PROVIDERS: ADMIT Internal Medicine; ATTEND Internal Medicine